=== PATIENT | male | born 1990 | race Caucasian/White ===

== ENCOUNTER 2018-03-22 08:03 | Emergency (ER) | payer OTHER ==
[~2018-03-22] VITALS: Ht 180.3 cm; Wt 72.9 kg
[2018-03-22 08:05] VITALS: TEMP 36.4; Ht 180.3 cm; Wt 72.9 kg
[2018-03-22] MEDS ORDERED: LIDOCAINE 1% BUFFERED INJ 5 ML VIAL ONE ×2 (08:13→08:29)
[2018-03-22] MEDS ORDERED: DIPHTHERIA/TETANUS/PERTUSSIS 0.5 ML SYR/VIAL IM. ONE (08:30)
[2018-03-22 08:42] VITALS: BP 107/73; PULSE 47; O2SAT 99
--- NOTE | 2018-03-22 09:04 | DIAGNOSTIC IMAGING REPORT ---
R FINGER(S) MIN 2 VIEWS ROUTINE HISTORY: 27 years-old Male Laceration over R 1st MC (dorsolateral) acute laceration of the first right digit COMPARISON: None available TECHNIQUE: 3 views of the right thumb FINDINGS: Mild soft tissue swelling without acute fracture, dislocation or opaque foreign body. No significant degenerative changes. IMPRESSION: Mild soft tissue swelling without fracture or opaque foreign body. The above report was generated using voice recognition software. It may contain grammatical, syntax or spelling errors. Electronically signed by: Yogesh Hennessy M.D. 03/22/2018 9:03 AM Dictated Date/Time: 03/22/2018 9:02 AM
--- NOTE | 2018-03-22 16:10 | EMERGENCY ROOM VISIT NOTE ---
History First contact with patient: 08:17 Chief Complaint: LACERATION/CUT (NON-SUTURE) Stated Complaint: CUT HAND WITH COMMUNICATION SPEC BLADE History of Present Illness The patient is a 27 year old male who presents to the Emergency Room with complaints of a laceration to his right thumb. The patient reports that he was changing a mower deck blade this morning when the wrench slipped and he cut his hand. The patient rates his discomfort a 5 out of 10. He reports slight paresthesias of the thumb. He denies any pain extending into the wrist region. The patient is uncertain of his last tetanus immunization. The patient is right-hand dominant. Review of Systems 10 system review was performed and was negative except for pertinent positives and negatives as indicated in history of present illness Past Medical/Surgical History Medical Problems: (1) No significant past medical history Surgical Problems: (1) No history of previous surgery Family History Unremarkable Social History Smoking Status: Never Smoker Alcohol Use: occasionally Marital Status: single Occupation Status: employed Current/Historical Medications No Active Prescriptions or Reported Meds Physical Exam Vital Signs Date Time Temp Pulse Resp B/P (MAP) Pulse Ox O2 Delivery O2 Flow Rate FiO2 03/22/18 08:42 47 18 107/73 99 Room Air 03/22/18 08:05 36.4 58 20 118/59 97 Room Air Physical Exam CONSTITUTIONAL: Healthy and well nourished. Alert and oriented X 3 with positive affect. Patient appears in mild discomfort. HEENT: Normocephalic, atraumatic. Pupils equal, round and reactive. NECK: Full active range of motion without discomfort. MUSCULOSKELETAL: Examination of the right hand shows a 3 cm laceration on the dorsal first metacarpal region. No active bleeding noted. Patient is able to extend the thumb against resistance. Capillary refill of the fingertip is less than 2 seconds. INTEGUMENTARY: No rash or other significant dermatologic conditions noted. NEUROLOGIC: Right thumb is sensory intact. Medical Decision & Procedures ER Provider Diagnostic Interpretation: My interpretation of right thumb x-rays does not show any acute fractures, dislocations or radiopaque foreign debris. Radiologist report is as follows: R FINGER(S) MIN 2 VIEWS ROUTINE HISTORY: 27 years-old Male Laceration over R 1st MC (dorsolateral) acute laceration of the first right digit COMPARISON: None available TECHNIQUE: 3 views of the right thumb FINDINGS: Mild soft tissue swelling without acute fracture, dislocation or opaque foreign body. No significant degenerative changes. IMPRESSION: Mild soft tissue swelling without fracture or opaque foreign body. Medications Administered Medications (Trade) Dose Ordered Sig/[place] Route Start Time Stop Time Status Last Admin Dose Admin Diphtheria/ Pertussis/Tetanus Vacc (Adacel Inj) 0.5 ml ONCE ONCE IM. 03/22/18 08:30 03/22/18 08:31 DC 03/22/18 08:39 0.5 ML Procedure Laceration repair was performed under local anesthesia after receiving verbal consent from the patient. Using buffered 1% lidocaine without epinephrine, good local anesthesia was administered. The wound was then peripherally cleansed with iodine, then the wound was irrigated with 100 cc of normal saline. Exploration of the wound does not show any significant damage to the underlying musculature. Tendons and nerves are not visible. No foreign debris is noted. The wound was then approximated using 4-0 nylon simple interrupted sutures. Bacitracin gauze was applied. ED Course Patient history and physical exam were performed. Nurse's notes were reviewed. Vital signs were reviewed and were normal. X-rays of the right thumb were normal. Laceration repair was performed under local anesthesia. The patient was provided additional verbal and written wound care instructions. Ice and elevation for swelling. Ibuprofen and Tylenol in alternating fashion as needed for pain relief. Suture removal in 12-14 days, or seek reevaluation sooner for any signs of wound infection. The patient was happy with plan of care, voiced understanding of all discharge instructions, and denied any significant discomfort at the conclusion of my exam. Medical Decision Medication Reconcilliation Current Medication List: was personally reviewed by me Blood Pressure Screening Patient's blood pressure: Normal blood pressure Impression Primary Impression: Laceration of right thumb Additional Impression: Work related injury Departure Information Dispostion Home / Self-Care Prescriptions No Active Prescriptions or Reported Meds Forms HOME CARE DOCUMENTATION FORM, IMPORTANT VISIT INFORMATION Patient Instructions My [facility] Additional Instructions Keep wound clean and dry. Do not allow any crusting or dried blood to accumulate on sutures. If this occurs, use a 1:1 solution of hydrogen peroxide/ water on a Q-tip to clean the wound. Use an antibiotic ointment for 3-4 days, then let wound dry. Suture removal in 12-14 days. Return sooner for any signs of infection (increasing redness, swelling, drainage). Ice and elevate for swelling and pain. Ibuprofen 800 mg and/or Tylenol 1000 mg every 8 hours. You may also alternate these medications for more effective pain relief: Ibuprofen --4 HRS--> Tylenol --4 HRS--> ibuprofen --4 HRS--> Tylenol .... Problem Qualifiers Primary Impression: Laceration of right thumb Encounter type: initial encounter Damage to nail status: without damage Foreign body presence: without foreign body Qualified Codes: S61.011A - Laceration without foreign body of right thumb without damage to nail, initial encounter
== END 2018-03-22 09:54 | disposition home or self-care (01) ==
LOC: C.EDB 08:04
DX: S61.011A Laceration without foreign body of right thumb without damage to nail, initial encounter (principal); W27.0XXA Contact with workbench tool, initial encounter; Y93.89 Activity, other specified; Y99.8 Other external cause status; Z23 Encounter for immunization